=== PATIENT | female | born 1980 | race Caucasian/White ===

== ENCOUNTER 2023-07-23 13:31 | Emergency (ER) | payer OTHER ==
[~2023-07-23] VITALS: Ht 162.6 cm; Wt 77.1 kg
[2023-07-23 13:39] VITALS: BP_SYST 144; PULSE 104; RESP 18; TEMP 98.9; O2SAT 100
[2023-07-23] MEDS ORDERED: ONDANSETRON HCL 4 MG/2 ML VIAL ONE (14:05)
[2023-07-23] MEDS: levETIRAcetam 1,000 MG in NS 90 ML IV ONE (14:09)
[2023-07-23] MEDS: ONDANSETRON HCL 4 MG/2 ML VIAL IVP ONE (14:09)
[2023-07-23 14:10] LABS: BASOPHILS % (AUTO) 0.4 % (0.0-2.0); EOSINOPHILS # (AUTO) 0.1 K/uL (0.0-0.4); EOSINOPHILS % (AUTO) 1.1 % (0.0-4.0); HEMATOCRIT 39.5 % (36-48); HEMOGLOBIN 12.9 g/dL (12.0-16.0); LYMPHOCYTES # (AUTO) 3.9 K/uL (1.0-5.5); LYMPHOCYTES % (AUTO) 32.1 % (20.5-51.5); MEAN CORPUSCULAR HEMOGLOBIN 27 pg (27-31); MEAN CORPUSCULAR HGB CONC 33 % (32-36); MEAN CORPUSCULAR VOLUME 82 fL (79.0-98.0); MONOCYTES % (AUTO) 8.4 % (1.7-9.3); PLATELET COUNT (AUTO) 430 K/uL (130-430); RED CELL DISTRIBUTION WIDTH 15.5 % (9.0-15.0); WHITE BLOOD COUNT (AUTO) 12.1 K/uL (4.8-10.8)
[2023-07-23 14:14] LABS: SERUM HCG (QUALITATIVE) NEGATIVE (NEGATIVE)
[2023-07-23 14:16] LABS: CALCIUM 8.3 mg/dL (8.4-11.0); CREATININE 0.91 mg/dL (0.55-1.30); POTASSIUM 3.4 mmol/L (3.5-5.1)
[2023-07-23] MEDS: ACETAMINOPHEN 500 MG TABLET PO ONE (14:36)
[2023-07-23] MEDS: NACL 0.9% 1,000 ML IV ONE (14:44)
[2023-07-23] MEDS: KETOROLAC TROMETHAMINE 30 MG VIAL IVP ONE (15:32)
[2023-07-23] MEDS ORDERED: LEVE500T9 PO (15:39)
[2023-07-23 15:58] LABS: BILIRUBIN,URINE NEGATIVE (NEGATIVE); BLOOD, URINE NEGATIVE (NEGATIVE); CLARITY/URINE CLEAR (CLEAR); COLOR,URINE YELLOW (YELLOW); GLUCOSE,URINE NEGATIVE (NEGATIVE); KETONES,URINE NEGATIVE (NEGATIVE); LEUKOCYTE ESTERASE ,URINE NEGATIVE (NEGATIVE); NITRITE, URINE NEGATIVE (NEGATIVE); PROTEIN URINE NEGATIVE (NEGATIVE); UROBILINOGEN,URINE 0.2 (0.2-1.0)
[2023-07-23 16:10] LABS: BARBITURATE, URINE NEGATIVE (NEG <=200); BENZODIAZEPINE, URINE NEGATIVE (NEG <=150); CANNABINOID, URINE POSITIVE (NEG <=50); COCAINE, URINE NEGATIVE (NEG <=150); METHAMPHETAMINES SCREEN,URINE NEGATIVE (NEG <=500); OPIATE, URINE NEGATIVE (NEG <=100); PHENCYCLIDINE SCREEN,URINE NEGATIVE (NEG <=25); UR TRICYCLIC ANTIDEPRESSANTS NEGATIVE (NEG <=300); URINE AMPHETAMINE NEGATIVE (NEG <=500); URINE METHADONE NEGATIVE (NEG <=200); URINE OXYCODONE SCREEN NEGATIVE (NEG <=100)
[2023-07-23 17:17] VITALS: BP_SYST 146; PULSE 65; RESP 15; TEMP 98.9; O2SAT 100
== END 2023-07-23 17:10 | disposition home or self-care (01) ==
LOC: SED 13:31
DX: R56.9 Unspecified convulsions (principal); I10 Essential (primary) hypertension; E11.9 Type 2 diabetes mellitus without complications; Z86.011 Personal history of benign neoplasm of the brain; Z79.899 Other long term (current) drug therapy
CPT/HCPCS: 99291; 96365; 70450; 96375; 96361; 80307; 80048; 84703; 85025; 36415; 83605; 81001; 81003; J1885; J1953; J2405; J7030